=== PATIENT | female | born 1965 | race Caucasian/White ===

== ENCOUNTER 2017-10-31 11:17 | Outpatient (CLI) | payer BC | END 2017-10-31 11:18 | disposition home or self-care (01) | LOC: BICMAMMO 11:17 | PROVIDERS: ATTEND Internal Medicine | DX: Z12.31 Encounter for screening mammogram for malignant neoplasm of breast (principal); Z80.3 Family history of malignant neoplasm of breast | CPT/HCPCS: 77063; 77067 ==

== ENCOUNTER 2018-08-29 10:31 | Outpatient (CLI) | payer OTHER ==
[~2018-08-29 10:31] MED LIST: ISOVUE-370 76%-LOCM 1 ML ONE
--- NOTE | 2018-08-29 13:42 | CT ---
CT ANGIO OF ABDOMEN PERFORMED WITH AND WITHOUT INTRAVENOUS CONTRAST ENHANCEMENT: History: High blood pressure, resistant to medication. FINDINGS: There is a calcified granuloma within the right lower lobe. The liver, spleen pancreas and gallbladde r regions all appear unremarkable on this angiographic phase exam. Right and left adrenal glands and right and left kidneys are normal in size and symmetric in appearan ce. No obstruction or renal calculi. No significant periaortic or mesenteric adenopathy. Angiographic portion of the study yielded a good examination. The abdominal aorta shows fairly minima l atherosclerotic change. The celiac, superior mesenteric and inferior mesenteric arteries are all pa tent without significant stenosis. On the right side there are two renal arteries with a smaller renal artery arising from the more ante rior margin of the aorta feeding the lower pole of the right kidney. There is no stenosis of either o f these arteries. On the left side some minimal calcified plaque at the origin of the second left is[place] al artery but no stenosis. IMPRESSION: No evidence of renal artery stenosis. POS: [facility]
== END 2018-08-29 10:32 | disposition home or self-care (01) ==
LOC: BICCT 10:31
PROVIDERS: ATTEND Internal Medicine
DX: I15.9 Secondary hypertension, unspecified (principal); R03.1 Nonspecific low blood-pressure reading
CPT/HCPCS: 74175; Q9966

== ENCOUNTER 2018-12-10 12:57 | Outpatient (CLI) | payer OTHER ==
--- NOTE | 2018-12-10 13:36 | MMO ---
Bilateral MAMMO Bilat Screen [facility]. CLINICAL HISTORY: Patient is 53 years old and is seen for screening. The patient has no family history of breast cancer. The patient has no personal history of cancer. VIEWS: The views performed were: bilateral craniocaudal with tomosynthesis and bilateral mediolateral oblique with tomosynthesis. FILMS COMPARED: The present examination has been compared to prior imaging studies performed at [facility] on 09/29/2014, 10/05/2015, 10/26/2016 and 10/31/2017. MAMMOGRAM FINDINGS: The breasts are heterogeneously dense, which could obscure a lesion on mammography. There are no suspicious masses, suspicious calcifications, or new areas of architectural distortion. IMPRESSION: THERE IS NO MAMMOGRAPHIC EVIDENCE OF MALIGNANCY. A ROUTINE FOLLOW-UP MAMMOGRAM IN 1 YEAR IS RECOMMENDED. THE RESULTS OF THIS EXAM WERE SENT TO THE PATIENT. ACR BI-RADS Category 1 - Negative MAMMOGRAPHY NOTE: 1. A negative mammogram report should not delay a biopsy if a dominant of clinically suspicious mass is present. 2. Approximately 10% to 15% of breast cancers are not detected by mammography. 3. Adenosis and dense breasts may obscure an underlying neoplasm.
== END 2018-12-10 12:58 | disposition home or self-care (01) ==
LOC: BICMAMMO 12:57
PROVIDERS: ATTEND Internal Medicine
DX: Z12.31 Encounter for screening mammogram for malignant neoplasm of breast (principal)
CPT/HCPCS: 77063; 77067